=== PATIENT | male | born 2000 | race Caucasian/White ===

== ENCOUNTER 2018-10-27 14:39 | Inpatient (IN) | payer OTHER ==
[2018-10-27 16:29] VITALS: BMI 25.0
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
[2018-10-27] MEDS ORDERED: MAG HYDROX/AL HYDROX/SIMETH 30 ML UNIT-DOSE CUP PO PRN (18:38)
[2018-10-27] MEDS ORDERED: guaiFENesin 200 MG/10 ML 10 ML UNIT-DOSE CUPS PO PRN (18:38)
[2018-10-27] MEDS ORDERED: ACETAMINOPHEN 325 MG TABLET (FP) PO PRN (18:38)
[2018-10-27] MEDS ORDERED: MAGNESIUM CITRATE 300 ML BOTTLE PO PRN (18:38)
[2018-10-27] MEDS ORDERED: MAGNESIUM HYDROX 2400MG/30ML ORAL SUSPENSION 30 ML CUP PO PRN (18:38)
[2018-10-27] MEDS ORDERED: MENTHOL/PHENOL 1 EACH UD MM PRN (18:38)
[2018-10-27] MEDS ORDERED: P-EPHED 60MG/TRIPROLIDI 2.5MG TABLET PO PRN (18:38)
[2018-10-27] MEDS ORDERED: IBUPROFEN 400 MG TABLET (FP) PO PRN (18:38)
[2018-10-27] MEDS: THIAMINE HCL 100 MG TABLET (FP) PO SCH (21:12)
[2018-10-28 09:29] LABS: BILIRUBIN,TOTAL 0.9 mg/dL (0.2-1); BLOOD UREA NITROGEN 14.7 mg/dL (7-18); CALCIUM 9.2 mg/dL (8.5-10.1); CREATININE 0.9 mg/dL (0.55-1.3); POTASSIUM 4.6 mmol/L (3.5-5.1); TOT PROT 7.2 g/dl (6.4-8.2)
[2018-10-28 09:37] LABS: MEAN PLT VOLUME 8.6 fl (7.5-11.1); WHITE BLOOD COUNT 5.2 K/mm3 (4.0-10.0)
[2018-10-28] MEDS: PRENATAL VITAMINS W/ FOLIC ACID TABLET (FP) PO SCH (09:47)
[2018-10-28 10:30] LABS: HEMATOCRIT 43.6 % (35.4-49); HEMOGLOBIN 14.3 GM/dL (11.7-16.9); MCH 30.7 pg (25.7-33.7); MCHC 32.9 g/dl (32.0-35.9); MEAN CELL VOLUME 93.2 fl (80-96); PLATELET COUNT 273 K/MM3 (134-434); RBC 4.68 M/mm3 (4.00-5.60); RDW 15.2 % (11.9-15.9)
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
[2018-10-28] MEDS: THIAMINE HCL 100 MG TABLET (FP) PO SCH (21:15)
[2018-10-29] MEDS: PRENATAL VITAMINS W/ FOLIC ACID TABLET (FP) PO SCH (10:07)
[2018-10-29] MEDS: THIAMINE HCL 100 MG TABLET (FP) PO SCH (21:22)
[2018-10-29] MEDS: MELATONIN 5 MG TABLETS PO PRN (21:22)
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
[2018-10-30] MEDS: PRENATAL VITAMINS W/ FOLIC ACID TABLET (FP) PO SCH (10:20)
[2018-10-30] MEDS: BACITRACIN 15 GM TUBE TOPICAL OINTMENT TP SCH ×2 (12:15→21:20)
[2018-10-30] MEDS: MELATONIN 5 MG TABLETS PO PRN (21:20)
[2018-10-30] MEDS: THIAMINE HCL 100 MG TABLET (FP) PO SCH (21:20)
[2018-10-31] MEDS: PRENATAL VITAMINS W/ FOLIC ACID TABLET (FP) PO SCH (10:12)
[2018-10-31] MEDS: BACITRACIN 15 GM TUBE TOPICAL OINTMENT TP SCH ×2 (10:13→21:28)
[2018-10-31 19:55] LABS: URINE APPEARANCE CLEAR; URINE BILIRUBIN NEGATIVE (NEGATIVE); URINE COLOR YELLOW; URINE GLUCOSE (UA) NEGATIVE (NEGATIVE); URINE KETONE NEGATIVE (NEGATIVE); URINE LEUK ESTERASE NEGATIVE (NEGATIVE); URINE NITRITE NEGATIVE (NEGATIVE); URINE PROTEIN NEGATIVE (NEGATIVE); URINE UROBILINOGEN 0.2 mg/dL (0.2-1.0)
[2018-10-31] MEDS: THIAMINE HCL 100 MG TABLET (FP) PO SCH (21:28)
[2018-10-31] MEDS: MELATONIN 5 MG TABLETS PO PRN (21:28)
[2018-11-01] MEDS: BACITRACIN 15 GM TUBE TOPICAL OINTMENT TP SCH ×2 (11:14→21:39)
[2018-11-01] MEDS: PRENATAL VITAMINS W/ FOLIC ACID TABLET (FP) PO SCH (11:14)
[2018-11-01] MEDS: THIAMINE HCL 100 MG TABLET (FP) PO SCH (21:39)
[2018-11-01] MEDS: MELATONIN 5 MG TABLETS PO PRN (21:39)
[2018-11-02] MEDS: BACITRACIN 15 GM TUBE TOPICAL OINTMENT TP SCH ×2 (10:35→21:44)
[2018-11-02] MEDS: PRENATAL VITAMINS W/ FOLIC ACID TABLET (FP) PO SCH (10:35)
[2018-11-02] MEDS: MELATONIN 5 MG TABLETS PO PRN (21:44)
[2018-11-02] MEDS: THIAMINE HCL 100 MG TABLET (FP) PO SCH (21:44)
[2018-11-02] MEDS: hydrOXYzine PAMOATE 25 MG CAPSULE (FP) PO PRN (21:45)
[2018-11-03] MEDS: BACITRACIN 15 GM TUBE TOPICAL OINTMENT TP SCH ×2 (10:04→22:02)
[2018-11-03] MEDS: PRENATAL VITAMINS W/ FOLIC ACID TABLET (FP) PO SCH (10:04)
[2018-11-03] MEDS: NICOTINE POLACRILEX 2 MG GUM BC PRN ×2 (12:23→22:02)
[2018-11-03] MEDS: MELATONIN 5 MG TABLETS PO PRN (22:02)
[2018-11-03] MEDS: THIAMINE HCL 100 MG TABLET (FP) PO SCH (22:03)
[2018-11-03] MEDS: hydrOXYzine PAMOATE 25 MG CAPSULE (FP) PO PRN (22:04)
[2018-11-04] MEDS: PRENATAL VITAMINS W/ FOLIC ACID TABLET (FP) PO SCH (10:26)
[2018-11-04] MEDS: BACITRACIN 15 GM TUBE TOPICAL OINTMENT TP SCH ×2 (10:26→21:43)
[2018-11-04] MEDS: MELATONIN 5 MG TABLETS PO PRN (21:41)
[2018-11-04] MEDS: NICOTINE POLACRILEX 2 MG GUM BC PRN (21:41)
[2018-11-04] MEDS: THIAMINE HCL 100 MG TABLET (FP) PO SCH (21:41)
[2018-11-04] MEDS: hydrOXYzine PAMOATE 25 MG CAPSULE (FP) PO PRN (21:43)
[2018-11-05] MEDS: PRENATAL VITAMINS W/ FOLIC ACID TABLET (FP) PO SCH (10:39)
[2018-11-05] MEDS: BACITRACIN 15 GM TUBE TOPICAL OINTMENT TP SCH ×2 (10:40→21:47)
[2018-11-05] MEDS: NICOTINE POLACRILEX 2 MG GUM BC PRN ×2 (12:40→21:47)
[2018-11-05] MEDS: THIAMINE HCL 100 MG TABLET (FP) PO SCH (21:45)
[2018-11-05] MEDS: MELATONIN 5 MG TABLETS PO PRN (21:45)
[2018-11-05] MEDS: hydrOXYzine PAMOATE 25 MG CAPSULE (FP) PO PRN (21:46)
[2018-11-06] MEDS: PRENATAL VITAMINS W/ FOLIC ACID TABLET (FP) PO SCH (11:00)
[2018-11-06] MEDS: BACITRACIN 15 GM TUBE TOPICAL OINTMENT TP SCH ×2 (11:00→21:45)
[2018-11-06] MEDS: NICOTINE POLACRILEX 2 MG GUM BC PRN ×2 (17:43→21:45)
[2018-11-06] MEDS: MELATONIN 5 MG TABLETS PO PRN (21:44)
[2018-11-06] MEDS: THIAMINE HCL 100 MG TABLET (FP) PO SCH (21:44)
[2018-11-06] MEDS: hydrOXYzine PAMOATE 25 MG CAPSULE (FP) PO PRN (21:45)
[2018-11-07 07:00] VITALS: TEMP 97.9
[2018-11-07] MEDS: PRENATAL VITAMINS W/ FOLIC ACID TABLET (FP) PO SCH (10:52)
[2018-11-07] MEDS: BACITRACIN 15 GM TUBE TOPICAL OINTMENT TP SCH ×2 (10:53→22:07)
[2018-11-07] MEDS: NICOTINE POLACRILEX 4 MG GUM BUC PRN ×4 (12:33→22:08)
[2018-11-07] MEDS: THIAMINE HCL 100 MG TABLET (FP) PO SCH (22:07)
[2018-11-07] MEDS: MELATONIN 5 MG TABLETS PO PRN (22:08)
[2018-11-08] MEDS: BACITRACIN 15 GM TUBE TOPICAL OINTMENT TP SCH ×2 (11:00→21:56)
[2018-11-08] MEDS: PRENATAL VITAMINS W/ FOLIC ACID TABLET (FP) PO SCH (11:00)
[2018-11-08] MEDS: NICOTINE POLACRILEX 4 MG GUM BUC PRN ×2 (11:37→21:56)
[2018-11-08] MEDS: MELATONIN 5 MG TABLETS PO PRN (21:56)
[2018-11-08] MEDS: THIAMINE HCL 100 MG TABLET (FP) PO SCH (21:56)
[2018-11-08] MEDS: hydrOXYzine PAMOATE 25 MG CAPSULE (FP) PO PRN (21:57)
[2018-11-09 07:28] VITALS: BP 132/79; PULSE 86
--- NOTE | 2018-11-09 10:12 | DS ---
[facility] Rehab Discharge Summary - [facility] Rehab Discharge Summary Admission Date: 10/27/18 Discharge Date: 11/09/18 - History Present History: Alcohol dependence, Cannabis dependence, PCP dependence Additional Comments: Pt is a 18 y/o male admitted to rehab for alcohol, cannabis and pcp use disorder. Pt participated in unit activities but often needed redirection due to poor impulse control. Pt met with his counselor, Ms Conchita Giles and [facility]. Pt reports no primary care at this time but has been instructed to follow up with [facility] clinic near him as per patient's suggestion for medical care if needed. Pertinent Past History: Impulse control disorder - Discharge Physical Exam Vital Signs: Vital Signs Temperature 97.9 F 11/07/18 06:59 Pulse Rate 86 11/09/18 07:27 Respiratory Rate 18 11/09/18 07:27 Blood Pressure 132/79 11/09/18 07:27 O2 Sat by Pulse Oximetry (%) Alert o x 3 nad Heent:Normocephalic,eomi,omar,hearing grossly normal cardiac:s1 s2, rrr Lungs:cta,kosta. Abdomen:+bs,soft,flat,nt Extremities/Skin:No e/c/c; Skin Intact-no redness or wounds/(neck abrasions resolved). Pertinent Admission Physical Exam Findings: Unremarkable Labs grossly normal Alk [id number] Laboratory Tests 10/28/18 10/28/18 10/28/18 07:30 07:30 07:30 WBC 5.2 RBC 4.68 Hgb 14.3 Hct 43.6 MCV 93.2 MCH 30.7 MCHC 32.9 RDW 15.2 Plt Count 273 MPV 8.6 Sodium 139 Potassium 4.6 Chloride 103 Carbon Dioxide 32 Anion Gap 4 L BUN 14.7 Creatinine 0.9 Est GFR (CKD-EPI)AfAm 142.00 Est GFR (CKD-EPI)NonAf 122.52 Random Glucose 87 Calcium 9.2 Total Bilirubin 0.9 AST 32 ALT 28 Alkaline Phosphatase 128 H Total Protein 7.2 Albumin 4.0 Urine Color Urine Appearance Urine pH Ur Specific Hutchinson Urine Protein Urine Glucose (UA) Urine Ketones Urine Blood Urine Nitrite Urine Bilirubin Urine Urobilinogen Ur Leukocyte Esterase RPR Titer Nonreactive TB (QFT) Incubation TB Test (QFT) Nil TB Test (QFT) Mitogen TB Test (QFT) Antigen TB Test (QFT) TB Positive Criteria 10/28/18 10/31/18 07:30 19:43 WBC RBC Hgb Hct MCV MCH MCHC RDW Plt Count MPV Sodium Potassium Chloride Carbon Dioxide Anion Gap BUN Creatinine Est GFR (CKD-EPI)AfAm Est GFR (CKD-EPI)NonAf Random Glucose Calcium Total Bilirubin AST ALT Alkaline Phosphatase Total Protein Albumin Urine Color Yellow Urine Appearance Clear Urine pH 6.0 Ur Specific Hutchinson 1.019 Urine Protein Negative Urine Glucose (UA) Negative Urine Ketones Negative Urine Blood Negative Urine Nitrite Negative Urine Bilirubin Negative Urine Urobilinogen 0.2 Ur Leukocyte Esterase Negative RPR Titer TB (QFT) Incubation TB Test (QFT) Nil 0.03 TB Test (QFT) Mitogen >10.00 TB Test (QFT) Antigen 0.02 TB Test (QFT) Negative TB Positive Criteria - Treatment Discharge Condition: Discharge condition good Hospital Course: Rehabilitated safely and responded well. - Medication Discharge Medications: Ambulatory Orders NK [No Known Home Medication] 10/27/18 - Medication-Assisted Treatment (MAT) Medication-Assisted Treatment (MAT): No - Discharge Instructions Diet, activity, other medical instructions: Diet:Regular Activity:OOB,ad kellee Other medical instructions:Follow up with CD aftercare with SHELBI Romero on 02/15 @ 11:00 a.m follow up with primary care at [facility] when needed. - Diagnosis (1) Alcohol use disorder Current Visit: Yes Status: Chronic (2) Cannabis dependence Current Visit: Yes Status: Chronic (3) Impulse control disorder, unspecified Current Visit: Yes Status: Chronic (4) Nicotine dependence Current Visit: Yes Status: Chronic Qualifiers: Nicotine product type: cigarettes Substance use status: uncomplicated Qualified Code(s): F17.210 - Nicotine dependence, cigarettes, uncomplicated (5) Phencyclidine dependence Current Visit: Yes Status: Chronic (6) Delusional disorder Current Visit: Yes Status: Suspected (7) Substance induced mood disorder Current Visit: Yes Status: Suspected - Follow-up Referral Minutes to complete discharge: 25 - AMA Did Patient Leave Against Medical Advice: No
[2018-11-09] MEDS: PRENATAL VITAMINS W/ FOLIC ACID TABLET (FP) PO SCH (10:23)
[2018-11-09] MEDS: BACITRACIN 15 GM TUBE TOPICAL OINTMENT TP SCH (10:23)
== END 2018-11-09 10:15 | disposition home or self-care (01) | DRG 772 ==
LOC: YASAS 14:39 → Y5N 19:02
PROVIDERS: ADMIT Neuromusculoskeletal Medicine & OMM; ATTEND Neuromusculoskeletal Medicine & OMM
PROC: HZ42ZZZ Group Counseling for Substance Abuse Treatment, Cognitive-Behavioral (ICD-10-PCS; principal; 2018-10-27)
DX: F16.20 Hallucinogen dependence, uncomplicated (principal); F12.20 Cannabis dependence, uncomplicated; F10.10 Alcohol abuse, uncomplicated; F17.210 Nicotine dependence, cigarettes, uncomplicated; F63.9 Impulse disorder, unspecified; F22 Delusional disorders; F19.24 Other psychoactive substance dependence with psychoactive substance-induced mood disorder; S40.212A Abrasion of left shoulder, initial encounter; S10.91XA Abrasion of unspecified part of neck, initial encounter; Y04.0XXA Assault by unarmed brawl or fight, initial encounter; Y93.89 Activity, other specified; Y92.238 Other place in hospital as the place of occurrence of the external cause
CPT/HCPCS: 36415; 80053; 81003; 85027; 86480; 86593